=== PATIENT | female | born 1970 | race African-American/Black ===

== ENCOUNTER → 2022-12-08 08:19 | Outpatient (BNVA) | payer MEDICAID, SELFPAY | PROVIDERS: PCP Physician Assistant Medical; Visit Provider Student in an Organized Health Care Education/Training Program | DX: R51.9 Headache, unspecified (principal) | CPT/HCPCS: 99202 ==

== ENCOUNTER 2022-12-08 09:48 | Outpatient (REF) | payer MEDICAID, SELFPAY ==
[2022-12-08 10:51] LABS: MANUAL DIFF FLAG NO
[2022-12-08 11:08] LABS: Basophils Percent Auto 0.3 % (0-2); Eosinophils Absolute Auto 0.1 X10*3/uL (0.0-0.4); Eosinophils Percent Auto 0.8 % (0-4); Hematocrit 44.2 % (37.0-47.0); Hemoglobin 14.6 g/dl (12.0-16.0); Imm Gran Abs Auto 0.03 X10*3/uL (0.00-0.03); Imm Gran Pct Auto 0.3 % (0.0-0.4); Lymphocytes Absolute Auto 2.3 X10*3/uL (1.2-4.9); Lymphocytes Percent Auto 19.7 % (20-40); Mean Corpuscular Hemoglobin 30.6 pg (27.0-33.0); Mean Corpuscular Volume 92.7 fL (80.0-98.0); Mean Platelet Volume 9.9 fL (9.4-12.3); Monocytes Absolute Auto 0.7 X10*3/uL (0.1-1.2); Neutrophils Absolute Auto 8.6 x10*3/uL (2.0-8.3); Neutrophils Percent Auto 72.9 % (45-73); Platelet Count 242 X10*3/uL (160-400); Red Blood Count 4.77 X10*6/uL (4.20-5.50); Red Cell Distribution Width 13.1 % (11.0-16.0); White Blood Count 11.8 X10*3/uL (4.8-10.8)
[2022-12-08 11:09] LABS: Appearance Urine Clear; Color Urine Yellow; Glucose Urine UA Negative (Negative); Leukocyte Esterase Urine Negative (Negative); Nitrite Urine Negative (Negative); PH 5.5 (5.0-9.0); Specific Gravity - Urine 1.025 (1.005-1.025); Urine Blood Negative (Negative); Urine Ketones Trace mg/dL (Negative); Urine Protein Negative (Neg-Trace)
[2022-12-08 11:18] LABS: Bacteria Urine None Seen (None Seen); Hyaline Casts Urine 0-2 /LPF (0-2); RBC Urine 0-2 /HPF (0-2); Squamous Epithelial Cell Urine 0-2 /HPF (0-2); WBC Urine 0-5 /HPF (0-5)
[2022-12-08 11:44] LABS: Creatinine Urine 248.81 mg/dL; Protein/Creatinine Ratio, Ur 0.05 (<0.2); Total Protein Urine Random 13 mg/dL (<12)
[2022-12-08 11:59] LABS: Erythrocyte Sedimentation Rate 2 MM/HR (0-20)
[2022-12-08 12:12] LABS: Alanine Aminotransferase 15 U/L (0-31); Albumin Level 4.2 g/dL (3.5-5.0); Alkaline Phosphatase 54 U/L (39-117); Anion Gap 13 (12-20); Aspartate Amino Transferase 16 U/L (5-31); Bilirubin Total 0.6 mg/dL (0.0-1.0); Blood Urea Nitrogen 14 mg/dL (9-16); C Reactive Protein 0.31 mg/dL (< or = 0.50); Calcium 9.1 mg/dL (8.4-10.2); Carbon Dioxide 24 mmol/L (22-29); Chloride 107 mmol/L (96-108); Estimated Glomerular Filt Rate > 60; Glucose Random 78 mg/dL (60-115); Potassium 3.7 mmol/L (3.3-5.1); Rheumatoid Factor < 13.0 IU/mL (<15.0); Sodium 140 mmol/L (135-145); Total Protein 6.8 g/dL (6.5-8.0)
[2022-12-08 12:40] LABS: HBS Num1 0.21 mIU/mL (0-7.99); HBc Num1 0.08 S/CO (0.00-0.79); HBsAGNum1 0.32 S/CO (0.00-0.99); Hepatitis A Antibody IgM 0.13 Index (0-0.79); Hepatitis B Core Antibody Nonreactive (Nonreactive); Hepatitis B Surface Antigen Negative (Negative); ~Hepatitis A Antibody IgM Nonreactive (Nonreactive); ~Hepatitis B Surface Antibody NONREACTIVE (Nonreactive); ~Hepatitis C Antibody Nonreactive (Nonreactive)
[2022-12-10 12:50] LABS: Anti DNA DS Antibody <1 IU/mL; Antibody to SS-A Antigen <1.0 NEG AI (<1.0 NEG); Antibody to SS-B Antigen <1.0 NEG AI (<1.0 NEG); Cardiolipin IgG Ab <2.0 GPL-U/mL; Cardiolipin IgM Ab <2.0 MPL-U/mL; SM/Ribonucleoprotein Ab <1.0 NEG AI (<1.0 NEG); Smith Protein <1.0 NEG AI (<1.0 NEG)
[2022-12-10 13:03] LABS: Immunoglobulin G Subclass 1 293 mg/dL (382-929); Immunoglobulin G Subclass 2 505 mg/dL (241-700); Immunoglobulin G Subclass 3 63 mg/dL (22-178); Immunoglobulin G Subclass 4 8.3 mg/dL (4-86); Immunoglobulin G Total 1002 mg/dL (600-1640)
[2022-12-10 14:29] LABS: IgA 159 mg/dL (47-310); IgG 1109 mg/dL (600-1640); IgM 92 mg/dL (50-300)
[2022-12-10 15:23] LABS: Cyclic Citrullinated Peptide <16 UNITS
[2022-12-10 23:00] LABS: Prot Elec - Albumin 4.4 g/dL (3.8-4.8); Prot Elec - Alpha1 0.4 g/dL (0.2-0.3); Prot Elec - Alpha2 0.8 g/dL (0.5-0.9); Prot Elec - Beta 1 0.5 g/dL (0.4-0.6); Prot Elec - Beta 2 0.3 g/dL (0.2-0.5); Prot Elec - Total Protein 7.3 g/dL (6.1-8.1)
[2022-12-11 08:14] LABS: TS Negative Control Passed; TS Panel A 0; TS Panel B 0; TS Positive Control Passed; TSpotTB Negative (Negative)
[2022-12-11 09:48] LABS: Complement C3 122 mg/dL (83-193)
[2022-12-12 18:58] LABS: PTT (LAC) Screen 27 sec (<=40)
[2022-12-14 07:43] LABS: Anti Nuclear Antibody Screen NEGATIVE (NEGATIVE)
[2022-12-14 14:14] LABS: Angiotensin Converting Enzyme 29.8 U/L (9-67)
[2022-12-14 22:14] LABS: Vitamin D 25-OH, D2 <4 ng/mL; Vitamin D 25-OH, D3 27 ng/mL; Vitamin D 25-OH, Total 27 ng/mL (30-100)
[2022-12-15 01:14] LABS: VITAMIN D (1,25 OH) D3 83 pg/mL; Vit D (1,25-Dihydroxy) Total 83 pg/mL (18-72); Vitamin D (1,25 OH) D2 <8 pg/mL
[2022-12-15 07:39] LABS: Beta-2 Glycoprotein IgA <2.0 U/mL (<20.0); Beta-2 Glycoprotein IgG <2.0 U/mL (<20.0); Beta-2 Glycoprotein IgM <2.0 U/mL (<20.0)
[2022-12-15 15:58] LABS: DNAds, Crithidia Antibody Negative (Negative)
[2022-12-15 17:28] LABS: Lysozyme, Serum 8.7 mcg/mL (5.0-11.0)
== END 2022-12-08 09:49 | disposition home or self-care (01) ==
LOC: HO.10HDL 09:48
PROVIDERS: Visit Provider Student in an Organized Health Care Education/Training Program
DX: Z11.7 Encounter for testing for latent tuberculosis infection (principal); Z13.21 Encounter for screening for nutritional disorder; Z11.59 Encounter for screening for other viral diseases; D86.9 Sarcoidosis, unspecified; M32.9 Systemic lupus erythematosus, unspecified; D68.61 Antiphospholipid syndrome; M25.541 Pain in joints of right hand; D89.89 Other specified disorders involving the immune mechanism, not elsewhere classified
CPT/HCPCS: 36415; 80053; 81001; 82164; 82306; 82652; 82784; 84156; 84165; 85025; 85549; 85597; 85613; 85652; 85730; 86038; 86039; 86140; 86146; 86147; 86160; 86200; 86225; 86235; 86255; 86334; 86431; 86481; 86704; 86706; 86709; 86803; 87340